=== PATIENT | male | born 1945 | race Caucasian/White ===

== ENCOUNTER 2017-05-25 15:23 | Emergency (ER) | payer MEDICARE ==
--- NOTE | 2017-05-25 17:50 | UC ---
Upper Extremity HPI - HPI Summary HPI Summary: 72 y/o male presents the urgent care accompany by c/o RT pinky finger swollen and painful s/p falling while playing tennis around 1700. No other injury or LOC. Pain is 4/10 with movement, denies numbness or tinglin sensation over the finger or hand. Pt denies dizziness, SOB, chest pain, abdominal pain N/ V/D. - History of Current Complaint Chief Complaint: UCUpperExtremity Stated Complaint: FINGER INJURY Time Seen by Provider: 05/25/17 17:48 Hx Obtained From: Patient Onset/Duration: Sudden Onset, Lasting Hours - 2hrs Severity Initially: Moderate Severity Currently: Moderate Pain Intensity: 4 Pain Scale Used: 0-10 Numeric Location Of Pain: Is Discrete @ - RT pinky finger Character: Dull Aggravating Factor(s): Movement Alleviating Factor(s): Ice Associated Signs And Symptoms: Positive: Swelling. Negative: Redness, Fever, Weakness, Numbness/Tingling - Risk Factors Non-Orthopedic Risk Factor: Negative DVT Risk Factors: Negative Septic Arthritis Risk Factor: Negative - Allergies/Home Medications Allergies/Adverse Reactions: Allergies Allergy/AdvReac Type Severity Reaction Status Date / Time No Known Allergies Allergy Verified 05/25/17 16:06 PMH/Surg Hx/FS Hx/Imm Hx Previously Healthy: Yes Other GI/ History: BPH Psychological History: Anxiety - Surgical History Surgical History: None - Family History Family History: Hypothyrodism - Social History Occupation: Retired Lives: With Family Alcohol Use: Occasionally Substance Use Type: None Smoking Status (MU): Never Smoked Tobacco Review of Systems Constitutional: Negative Skin: Negative Eyes: Negative ENT: Negative Respiratory: Negative Cardiovascular: Negative Gastrointestinal: Negative Genitourinary: Negative Motor: Decreased ROM - RT pinky finger Musculoskeletal: Decreased ROM, Other: - RT pinky finger pain Neurological: Negative Psychological: Negative Is Patient Immunocompromised?: No All Other Systems Reviewed And Are Negative: Yes Physical Exam Triage Information Reviewed: Yes Vital Signs: Initial Vital Signs Temp 97.6 F 05/25/17 16:02 Pulse 65 05/25/17 16:02 Resp 12 05/25/17 16:02 BP 142/87 05/25/17 16:02 Pulse Ox 99 05/25/17 16:02 - Additional Comments Vital Signs Reviewed: Yes General: Well developed well nourished female sitting in the examining table w/ o any apparent distress Eyes: Positive: Conjunctiva Clear - PERRLA, EOMI ENT: Positive: Normal ENT inspection, Hearing grossly normal, Pharynx normal, TMs normal Neck: Positive: Supple, Nontender, No Lymphadenopathy Respiratory: Positive: Chest non-tender, Lungs clear, Normal breath sounds, No respiratory distress Cardiovascular: Positive: RRR, No Murmur, Pulses Normal, Brisk Capillary Refill Abdomen Description: Positive: Nontender, No Organomegaly, Soft. Negative: CVA Tenderness (R), CVA Tenderness (L) Bowel Sounds: Positive: Present Musculoskeletal: Positive: Strength Intact, RT Hand/Fingers: the R hand is without obvious asymmetry or deformity when compared to the L hand, except to the Rt 5th phalanx that presents with ventral deformity of the proximal phalanx at the PIP, tender to palpation, mild swelling, decrease ROM due to pain , no ecchymosis or bruising observe. Sensation intact, capillary refill brisk, pulses WNL . Normal cascade of fingers. Normal flexion and extension of fingers, except for #5 phalanx due to pain. Neurological Exam: Normal Psychological Exam: Normal Skin Exam: Normal Upper Extremity Course/Dx - Course Course Of Treatment: 72 y/o male presents the urgent care accompany by c/ o RT pinky finger swollen and painful s/p falling while playing tennis around 1700. No other injury or LOC. Pain is 4/10 with movement, denies numbness or tinglin sensation over the finger or hand. Pt denies dizziness, SOB, chest pain , abdominal pain N/V/D.Hx obtained. RT #5th phalanx with deformity of the proximal phalanx at the PIP, tender to palpation, mild swelling, decrease ROM due to pain, no ecchymosis or bruising observe. Sensation intact, capillary refill brisk, pulses WNL. RT small finger X-ray ordered: Impression: %th PIP joint dislocatiob w/ probable fracture at the base of the middle phalanx of the 5th digit. Dr Reyes consulted on Pt's symptoms. He recommeded reduction, post image and splinting. Pt's declines digital block for reduction. Reduction done w /o any adversed effects. Pt tolerated well procedure and neurovasculat intact. Post reduction X-ray ordered: Impression: Interval reduction of the 5th PIP joint dislocation and unable to visualize volar plate fracture of middle phalanx. Pt's finger immobilized with a finger splint and body tape in position of function, and scarlett bandage around all hand. Pt Rx Naproxen PO for pain and swelling, Advised RICE. F/U with Orthopedic DR Koenig on Sunday for further evaluation and treatment. Pt explainded D/C instructions. Pt understood and agreed with plan of care. - Differential Dx/Diagnosis Differential Diagnosis/HQI/PQRI: Arthritis, Contusion, Fracture (Closed), Strain , Sprain, Other - dislocation Provider Diagnoses: 1- RT #5th phalanx pain s/p falling. 2- RT #5th PIP joint dislocation w/ probable fracture at the base of the middle phalanx. 3-Elevated BP w/o Hx of HTN - Physician Notification/Consults Discussed Patient Care With: Ambrosio Reyes - Dr Reyes agreed with Pt's plan of care. Discharge - Discharge Plan Condition: Stable Disposition: HOME Prescriptions: Naproxen TAB* [Naprosyn 250 mg TAB*] 500 mg PO Q8H PRN #20 tab PRN Reason: Pain Patient Education Materials: Finger Fracture (ED), Finger Dislocation (ED), Low Sodium Diet (ED) Referrals: Tony Koenig MD [Medical Doctor] - 2 Days Haile Holden MD [Primary Care Provider] - 2 Days Additional Instructions: 1-Please take medications as directed to alleviate pain and swelling. 2-Please apply ice, keep your finger immobilized with the splint. 3- Please f/u with Orthopedic Dr Koenig in 2 days for further evaluation and treatment. 4-Pt's BP is elevated today advised to decrease salt in diet, monitor BP and f/ u with PCP for further management
--- NOTE | 2017-05-25 18:27 | RAD ---
HISTORY: Right fifth digit pain, trauma COMPARISONS: None VIEWS: 3, Frontal, lateral, and oblique views of the fifth digit of the right hand FINDINGS: BONE DENSITY: Normal. BONES: There is minimal linear lucency along the volar aspect of the base of the middle phalanx of the fifth digit JOINTS: There is no arthropathy. ALIGNMENT: There is posterior dislocation of the middle phalanx of the fifth digit with respect to the proximal phalanx. SOFT TISSUES: Unremarkable. OTHER FINDINGS: None. IMPRESSION: FIFTH PIP JOINT DISLOCATION WITH PROBABLE FRACTURE OF THE BASE OF THE MIDDLE PHALANX OF THE FIFTH DIGIT
--- NOTE | 2017-05-25 19:11 | RAD ---
HISTORY: Post reduction right fifth PIP dislocation COMPARISONS: May 25, 2017 at 6:16 PM VIEWS: 3, Frontal, lateral, and oblique views of the fifth digit at 6:59 PM FINDINGS: BONE DENSITY: Normal. BONES: The questionable volar plate fracture of the middle phalanx is not well visualized on the submitted images. JOINTS: There is no arthropathy. ALIGNMENT: There has been interval reduction of the fifth PIP joint dislocation. SOFT TISSUES: Unremarkable. OTHER FINDINGS: None. IMPRESSION: INTERVAL REDUCTION OF FIFTH PIP JOINT DISLOCATION. THE QUESTIONABLE FRACTURE OF THE VOLAR PLATE OF THE MIDDLE PHALANX IS NOT WELL VISUALIZED ON THE CURRENT EXAMINATION.
[2017-05-25 19:54] VITALS: BP 140/85
== END 2017-05-25 19:40 | disposition home or self-care (01) ==
LOC: UCEAST 15:23
DX: M79.644 Pain in right finger(s) (principal); S63.276A Dislocation of unspecified interphalangeal joint of right little finger, initial encounter; R03.0 Elevated blood-pressure reading, without diagnosis of hypertension; F41.9 Anxiety disorder, unspecified; W19.XXXA Unspecified fall, initial encounter; Y93.73 Activity, racquet and hand sports; Y92.9 Unspecified place or not applicable
CPT/HCPCS: 73140; 99212; G0463